=== PATIENT | male | born 2000 | race African-American/Black ===

== ENCOUNTER 2021-01-20 20:41 | Emergency (ER) | payer OTHER ==
[~2021-01-20] VITALS: Ht 185.4 cm; Wt 70.3 kg
[~2021-01-20 20:41] MED LIST: AMOXICILLI400 MG/5 M PO; APAP/CODEINE ELI5 M1 OR; NOHOMEMEDICATIONS
[2021-01-20 21:43] VITALS: BP 126/79
== END 2021-01-20 22:05 | disposition home or self-care (01) ==
LOC: ER 20:41
DX: S20.211A Contusion of right front wall of thorax, initial encounter (principal); V43.52XA Car driver injured in collision with other type car in traffic accident, initial encounter; Y93.89 Activity, other specified; Y92.89 Other specified places as the place of occurrence of the external cause; Y99.8 Other external cause status